=== PATIENT | female | born 1985 | race Caucasian/White ===

== ENCOUNTER 2017-02-12 14:37 | Emergency (ER) | payer BC ==
[2017-02-12 14:52] VITALS: BP 131/79
--- NOTE | 2017-02-12 16:07 | RAD ---
INDICATION: Pain and swelling. COMPARISON: None TECHNIQUE: Duplex interrogation of the Lowerextremity was performed. FINDINGS: Deep veins: The common femoral, great saphenous, profunda femoris, proximal, mid, and distal deep femoral, popliteal, posterior tibial, and peroneal veins are interrogated. There is a short segment of thrombosed popliteal vein. The remaining veins are patent. There is otherwise normal compressibility, augmentation, and phasic flow. Superficial veins: There are no findings of superficial thrombophlebitis. Popliteal fossa:There is no evidence of a popliteal cyst. Soft tissues:There are no soft tissue abnormalities. IMPRESSION: Deep venous thrombosis of the popliteal vein appear
[2017-02-12] MEDS ORDERED: Enoxaparin(*) 100 MG/ML SYR SUBCUT ONE (17:46)
--- NOTE | 2017-02-12 19:01 | ED ---
Alanna Esquivel Thomas, scribed for Ford Zelaya MD on 02/12/17 at 1524 . Lower Extremity - HPI Summary HPI Summary: The patient is a 31 y/o F with a Hx of DVT who presents to the ED with LLE pain that began two days ago. She is 9 weeks . She says that her LLE feels achy and cold. She rates the pain 8/10. She denies any appreciable swelling. She was at one point on a blood thinner. PMHx: DVT, pleural effusion. PSHx: ACL reconstruction. SHx: no smoking, no alcohol use. FHx: negative for DVT. - History of Current Complaint Chief Complaint: EDBleedingDisorder Stated Complaint: LEFT LEG POSSIBLE BLOOD CLOT Time Seen by Provider: 02/12/17 15:06 Hx Obtained From: Patient Onset/Duration: Days - onset of pain two days ago Severity Currently: Severe Pain Intensity: 8 Pain Scale Used: 0-10 Numeric Timing: Constant Location: Is Discrete @ - LLE Character Of Pain: Aching Associated Signs And Symptoms: Positive: Other - POS: feeling of coldnes to LLE. Negative: Swelling Aggravating Factor(s): Nothing Alleviating Factor(s): Nothing - Allergies/Home Medications Allergies/Adverse Reactions: Allergies Allergy/AdvReac Type Severity Reaction Status Date / Time Latex Allergy Hives Verified 02/12/17 14:48 PMH/Surg Hx/FS Hx/Imm Hx Previously Healthy: No Cardiovascular History: Reports: Hx Deep Vein Thrombosis Respiratory History: Reports: Hx Pleural Effusion - Surgical History Surgery Procedure, Year, and Place: ACL reconstruction Infectious Disease History: No Infectious Disease History: Denies: Traveled Outside the [place] in Last 30 Days - Family History Known Family History: Negative: Other - NEG: DVT - Social History Alcohol Use: None Hx Substance Use: No Substance Use Type: Reports: None Hx Tobacco Use: No Smoking Status (MU): Never Smoked Tobacco Review of Systems Negative: Fever Positive: Other - POS: LLE pain, feeling of achiness and colness to LLE; NEG: any swelling to LLE All Other Systems Reviewed And Are Negative: Yes Physical Exam Triage Information Reviewed: Yes Vital Signs On Initial Exam: Initial Vitals Temp Pulse Resp BP Pulse Ox 98.8 F 75 16 131/79 97 02/12/17 14:50 02/12/17 14:50 02/12/17 14:50 02/12/17 14:50 02/12/17 14:50 Vital Signs Reviewed: Yes Appearance: Positive: Well-Appearing, No Pain Distress Skin: Positive: Warm, Skin Color Reflects Adequate Perfusion, Dry Head/Face: Positive: Normal Head/Face Inspection Eyes: Positive: Normal ENT: Positive: Normal ENT inspection Neck: Positive: Supple Respiratory/Lung Sounds: Positive: Clear to Auscultation, Breath Sounds Present Cardiovascular: Positive: RRR Abdomen Description: Positive: Nontender, Soft Bowel Sounds: Positive: Present Musculoskeletal: Positive: Other - There is tenderness in the common foramen canal. On both extremities there are normal pulses and capillary refills. Neurological: Positive: Normal Psychiatric: Positive: Normal, Affect/Mood Appropriate Diagnostics - Vital Signs Vital Signs Temp Pulse Resp BP Pulse Ox 02/12/17 14:50 98.8 F 75 16 131/79 97 - Laboratory Lab Statement: Any lab studies that have been ordered have been reviewed, and results considered in the medical decision making process. - Additional Comments Diagnostic Additional Comments: Patient Name: ANGEL PATEL Medical Record#: [id number] Ordering Physician: Ford Zelaya MD Acct.#: [id number] : 1985 Age: 31 Sex: F Location: EMERGENCY DEPARTMENT Exam Date: 02/12/17 152 ADM Status: REG ER Order Information: VL LOWER EXT VEINS LEFT Accession Number: [id number] [facility] Interpreted by radiologist. IMPRESSION: Deep venous thrombosis of the popliteal vein appear. Lower Extremity Course/Dx - Course Course Of Treatment: Ms. Patel is 9 weeks and was found to have a small left popliteal DVT. She was started on lovenox and will F/U with Dr. Pacheco. - Diagnoses Provider Diagnoses: DVT (deep vein thrombosis) in - Physician Notifications Discussed Care Of Patient With: Noelle Bowman - 17:17, Julio Cesar Pacheco - 1729 Time Discussed With Above Provider: 17:17 Instructed by Provider To: Other - I discussed patient care with Dr. Bowman, OBGYN, at 17:17. I also consulted with Dr. Pacheco, Heme-Onc, at 17:23. Discharge - Discharge Plan Condition: Stable Disposition: HOME Prescriptions: Enoxaparin(*) [Lovenox(*)] 80 mg SUBCUT Q12HR #20 syringe Patient Education Materials: Deep Venous Thrombosis (ED) Referrals: Janneth Herrera MD [Medical Doctor] - 5 Days Additional Instructions: Follow up with Dr. Herrera within a week. Return to the emergency department for any new or worsening symptoms. The documentation as recorded by the Alanna haley Thomas accurately reflects the service I personally performed and the decisions made by me, Ford Zelaya MD.
== END 2017-02-12 18:33 | disposition home or self-care (01) ==
LOC: ED 14:37
DX: O22.31 Deep phlebothrombosis in pregnancy, first trimester (principal); I82.432 Acute embolism and thrombosis of left popliteal vein; Z3A.09 9 weeks gestation of pregnancy
CPT/HCPCS: 96372; 99282; J1650

== ENCOUNTER 2017-09-25 23:34 | Inpatient (IN) | payer BC ==
[2017-09-26] MEDS ORDERED: Ondansetron ODT TAB* 4 MG PO ONE (00:22)
[2017-09-26] MEDS: Ondansetron ODT TAB* 4 MG ONE ×2 (00:37→16:33)
[2017-09-26 05:54] LABS: ABS Basophils 0.1 10^3/ul (0-0.2); ABS Eosinophils 0 10^3/ul (0-0.6); ABS Lymphocytes 1.3 10^3/ul (1.0-4.8); ABS Monocytes 0.4 10^3/ul (0-0.8); ABS Nucleated RBC 0 10^3/ul; Eosinophil % 0 % (0-6); Hematocrit 41 % (35-47); Hemoglobin 14.3 g/dl (12.0-16.0); Lymphocyte % 7.7 % (25-47); Mean Corpuscular HGB Conc 35 g/dl (31-36); Mean Corpuscular Hemoglobin 32 pg (27-31); Mean Corpuscular Volume 92 fL (80-97); Mean Platelet Volume 7.9 um3 (7.4-10.4); Nucleated Red Blood Cells % 0; Platelet Count 221 10^3/ul (150-450); Red Blood Count 4.42 10^6/ul (4.0-5.4); Red Cell Distribution Width 14 % (10.5-15); White Blood Count 16.8 10^3/ul (3.5-10.8)
[2017-09-26 06:00] LABS: INR 0.86 (0.77-1.02)
--- NOTE | 2017-09-26 13:58 | HP ---
General Information - General Information Maternal Age: 31 Grav: 1 Para: 0 SAB: 0 IEA: 0 Estimated Due Date: 09/18/17 Determined By: LMP Gestational Age in Weeks and Days: 41 Weeks and 1 Days Maternal Blood Type and Rh: A Positive - Results this Serology/RPR Result: Non-Reactive Rubella Result: Immune HBsAg Result: Negative HIV Result: Negative GBS Culture Result: Negative Past Medical History Pertinent Past Medical History: See Records - DVT LEFT LEG 2009 AND 2016 ON LOVENOX THIS Pertinent Past Surgical History: See Records Past Surgical History Comment: 2012 ACL REPAIR 2016 Laparoscopy [place] teeht extraction Pertinent Family History: See Records - Antepartal Records Antepartal Records: Reviewed, Complicated by: - On anticoagulation for Hx DVT Review of Systems Constitutional: Comfortable CV Complaint: Yes Respiratory: Shortness of Breath: Yes Gastrointestinal: No Nausea/Vomiting, Normal Bowel Movement Genitourinary: Leaking Fluid, No Dysuria, No Bleeding Musculoskeletal: No Complaint Neurological: No Headache Movement: Normal Exam Allergies/Adverse Reactions: Allergies MS Latex [Latex] Allergy (Verified 09/26/17 00:54) Hives Temp 97.6 BP 130/80 RR 18 P 76 Pulse Ox 100% Lab Values - Entire Visit: Laboratory Tests 09/26/17 09/26/17 09/26/17 05:22 05:22 05:22 WBC 16.8 H RBC 4.42 Hgb 14.3 Hct 41 MCV 92 MCH 32 H MCHC 35 RDW 14 Plt Count 221 MPV 7.9 Neut % (Auto) 89.4 H Lymph % (Auto) 7.7 L [place] % (Auto) 2.5 Eos % (Auto) 0 Baso % (Auto) 0.4 Absolute Neuts (auto) 15.0 H Absolute Lymphs (auto) 1.3 Absolute Monos (auto) 0.4 Absolute Eos (auto) 0 Absolute Basos (auto) 0.1 Absolute Nucleated RBC 0 Nucleated RBC % 0 INR (Anticoag Therapy) 0.86 Blood Type A Positive Antibody Screen Negative - Measurements Height: 5 ft 7 in Weight: 201 lb Weight in lbs: 201 Body Mass Index (BMI): 31.4 Pre- Weight: 206 lb Weight Gained This : -5 lbs and 0 ozs - Exam Abdomen: No Upper Quadrant Pain Breast: Breast Exam Deferred CVA: No CVA Tenderness Extremities: No Edema Heart: Normal Rhythm/Heart Sounds HEENT: No Significant Findings Lungs: Clear Bilaterally Rectal: Rectal Exam Deferred Reflexes: DTR 2+ Thyroid: No Thyromegaly - Abdominal Exam Abdomen Exam: Non-Tender, Fundal Height Consistent with Dates - Ultrasound/Biophysical Profile Ultrasound Status: Not Done Targeted Exam Findings See L&D Outpatient Visit Provider Note for Findings: N/A Cervical Exam: 5cm Effacement: 80% Station: -1 Presenting Part: Vertex Membrane Status: SROM Amniotic Fluid Evaluation: Clear Bleeding/Discharge: None EFM Findings - External Monitor Findings Baseline Heart Rate: 130 External Monitor Findings: Accelerations Present Contractions: Irregular Contraction Frequency: q5min Assessment/Plan - Reason for Visit Reason for Visit: IUP at 41 weeks with SROM at 2100 09/25/17 with regular contractions and advanced cervical dilation. - Obstetrical Risk Factors Obstetrical Risk Factors: Post-Dates, Obesity Risk Factors Comment: BMI 32.2 Hx of DVT last heparin note on 09/25/17 noon. - Plan Plan: Observe Plan Comment: Monitor with expectation of - Date/Time of Admission Date of Admission: 09/26/17 Time of Admission: 10:30
[2017-09-26] MEDS ORDERED: Ondansetron ODT TAB* 4 MG ONE (16:31)
[2017-09-26] MEDS ORDERED: OBEPIDURAL* 250 ML EPIDURAL ONE (18:20)
[2017-09-26] MEDS ORDERED: fentaNYL* 50 MCG/ML 2 ML VIAL (100 MCG VIAL) ONE (18:20)
[2017-09-26] MEDS ORDERED: Famotidine TAB* 20 MG PO PRN (19:02)
[2017-09-26] MEDS ORDERED: Phenylephrine IV* 40 MCG/ML 10 ML SYRINGE IV PUSH PRN (19:02)
[2017-09-26] MEDS ORDERED: Sodium Citrate/Citric Acid* 15 ML UDC PO PRN (19:02)
[2017-09-26] MEDS ORDERED: EPHEDrine (Pressors)* 50 MG/ML VIAL IV PUSH PRN (19:02)
[2017-09-26] MEDS ORDERED: Oxytocin in LR* 20 UNITS/1,000 ML BAG IVPB SCH (20:00)
[2017-09-26] MEDS ORDERED: OBEPIDURAL* 250 ML EPIDURAL SCH (20:00)
[2017-09-27] MEDS ORDERED: Acetaminophen TAB* 325 MG PO PRN (01:34)
[2017-09-27] MEDS ORDERED: Glycerin ADULT SUPP PR PRN (01:34)
[2017-09-27] MEDS: Ibuprofen TAB* 600 MG PO PRN ×4 (03:37→21:34)
--- NOTE | 2017-09-27 04:56 | PTEDU ---
Patient Name: ANGEL MARCUS AMRITANGEL selected video: BBOB: Nurturing Your Gorgeous &Growing Baby by to view on 09/27/2017 at 4:55:54 [id number]
[2017-09-27] MEDS: Simethicone TAB* 80 MG TAB.CHEW PO SCH ×3 (08:30→17:30)
[2017-09-27] MEDS: Witch Hazel PAD* JAR TOPICAL PRN (09:42)
[2017-09-27] MEDS: Dibucaine 1% 28.35 GM TUBE PR PRN (09:42)
[2017-09-27] MEDS: Docusate CAP* 100 MG PO SCH ×4 (09:42→21:34)
[2017-09-27] MEDS: Enoxaparin(*) 40 MG/0.4 ML SYR SUBCUT SCH (09:44)
--- NOTE | 2017-09-27 11:51 | PTEDU ---
Patient Name: ANGEL MARCUS ANGEL MARCUS selected video: Never Ever Shake a Baby to view on 09/27/2017 at 11:50:[address] [id number]
[2017-09-28] MEDS: Ibuprofen TAB* 600 MG PO PRN ×3 (04:40→18:00)
[2017-09-28] MEDS: Simethicone TAB* 80 MG TAB.CHEW PO SCH (06:52)
[2017-09-28 07:04] LABS: ABS Basophils 0.1 10^3/ul (0-0.2); ABS Eosinophils 0.1 10^3/ul (0-0.6); ABS Lymphocytes 2.8 10^3/ul (1.0-4.8); ABS Monocytes 1.1 10^3/ul (0-0.8); ABS Neutrophils 10.1 10^3/ul (1.5-7.7); ABS Nucleated RBC 0 10^3/ul; Eosinophil % 0.5 % (0-6); Hematocrit 30 % (35-47); Hemoglobin 10.1 g/dl (12.0-16.0); Lymphocyte % 20.2 % (25-47); Mean Corpuscular HGB Conc 34 g/dl (31-36); Mean Corpuscular Hemoglobin 32 pg (27-31); Mean Corpuscular Volume 95 fL (80-97); Mean Platelet Volume 7.4 um3 (7.4-10.4); Nucleated Red Blood Cells % 0.1; Platelet Count 181 10^3/ul (150-450); Red Blood Count 3.12 10^6/ul (4.0-5.4); Red Cell Distribution Width 14 % (10.5-15); White Blood Count 14.1 10^3/ul (3.5-10.8)
[2017-09-28] MEDS ORDERED: Ferrous Gluconate TAB* 324 MG TAB PO SCH (09:00)
[2017-09-28] MEDS: Enoxaparin(*) 40 MG/0.4 ML SYR SUBCUT SCH (09:17)
[2017-09-28] MEDS: Docusate CAP* 100 MG PO SCH ×4 (09:17→19:44)
[2017-09-28] MEDS: Dibucaine 1% 28.35 GM TUBE PR PRN (19:44)
[2017-09-28] MEDS: Witch Hazel PAD* JAR TOPICAL PRN (19:44)
[2017-09-29] MEDS: Ibuprofen TAB* 600 MG PO PRN ×2 (02:16→08:15)
[2017-09-29 07:19] VITALS: BP 114/54
[2017-09-29] MEDS: Docusate CAP* 100 MG PO SCH (08:15)
[2017-09-29] MEDS: Enoxaparin(*) 40 MG/0.4 ML SYR SUBCUT SCH (08:16)
== END 2017-09-29 11:49 | disposition home or self-care (01) | DRG 560 ==
LOC: MCHOBOUT 23:34 → MCHOB 09-26 00:23
PROVIDERS: ADMIT Obstetrics & Gynecology; ATTEND Obstetrics & Gynecology
PROC: 4A1HX4Z Monitoring of Products of Conception, Cardiac Electrical Activity, External Approach (ICD-10-PCS; principal; 2017-09-28)
PROC: 0KQM0ZZ Repair Perineum Muscle, Open Approach (ICD-10-PCS; 2017-09-28)
PROC: 10E0XZZ Delivery of Products of Conception, External Approach (ICD-10-PCS; 2017-09-28)
PROC: 10907ZC Drainage of Amniotic Fluid, Therapeutic from Products of Conception, Via Natural or Artificial Opening (ICD-10-PCS; 2017-09-28)
DX: O48.0 Post-term pregnancy (principal); O66.0 Obstructed labor due to shoulder dystocia; O99.214 Obesity complicating childbirth; O77.0 Labor and delivery complicated by meconium in amniotic fluid; O70.1 Second degree perineal laceration during delivery; Z37.0 Single live birth; Z91.040 Latex allergy status; Z3A.41 41 weeks gestation of pregnancy; Z86.718 Personal history of other venous thrombosis and embolism; Z68.32 Body mass index [BMI] 32.0-32.9, adult
CPT/HCPCS: 36415; 82565; 84112; 84520; 85025; 85610; 86850; 86900; 86901; A9270-GY; J1650; J3010

== ENCOUNTER 2020-04-05 00:45 | Inpatient (IN) ==
[2020-04-05] MEDS ORDERED: Buffered Lidocaine 1% SYRIN 1 ml INTRADERM ONE (01:26)
[2020-04-05] MEDS ORDERED: Lactated Ringers 1000 ml BAG 1,000 ML IV ONE (01:26)
[2020-04-05] MEDS ORDERED: Lactated Ringers 1000 ml BAG 1,000 ML IV SCH ×2 (02:00→08:00)
[2020-04-05 02:15] LABS: ABS Basophils 0.1 10^3/ul (0-0.2); ABS Lymphocytes 1.9 10^3/ul (1.0-4.8); ABS Monocytes 1.1 10^3/ul (0-0.8); ABS Neutrophils 8.8 10^3/ul (1.5-7.7); Eosinophil % 0.3 %; Hematocrit 41 % (35-47); Hemoglobin 14.4 g/dL (12.0-16.0); Lymphocyte % 16.1 %; Mean Corpuscular HGB Conc 35 g/dL (31-36); Mean Corpuscular Hemoglobin 33 pg (27-31); Mean Corpuscular Volume 93 fL (80-97); Mean Platelet Volume 7.6 fL (7.4-10.4); Platelet Count 214 10^3/uL (150-450); Red Blood Count 4.43 10^6 /uL (3.70-4.87); Red Cell Distribution Width 14 % (10-15); White Blood Count 11.9 10^3/uL (3.5-10.8)
[2020-04-05] MEDS ORDERED: Sodium Phosphate ADULT ENEMA 133 ML BTL PR ONE (02:38)
[2020-04-05 02:40] LABS: Urine Benzodiazepine Screen None Detected (None Detect); Urine Cannabinoids Screen None Detected (None Detect); Urine Opiates Screen None Detected (None Detect)
[2020-04-05 03:12] LABS: Activated Partial Thrombo Time 22.7 seconds (26.0-38.0); Fibrinogen 426.5 mg/dL (110.8-404.3)
[2020-04-05 03:49] LABS: Platelet Count 214 10^3/ul (150-450); Schistocytes ABSENT
[2020-04-05] MEDS ORDERED: Oxytocin in LR 20 UNITS/1,000 ML BAG IVPB ONE (06:39)
[2020-04-05] MEDS ORDERED: Glycerin ADULT 2.4 gm SUPP PR PRN (07:42)
[2020-04-05] MEDS ORDERED: Witch Hazel PAD JAR TOPICAL PRN (07:42)
[2020-04-05] MEDS: Dibucaine 1% OINT 28.35 GM TUBE PR PRN (07:56)
[2020-04-05] MEDS ORDERED: Oxytocin in LR 20 UNITS/1,000 ML BAG IVPB SCH (08:00)
[2020-04-05] MEDS ORDERED: Ammonia Inhalant 1 EA AMP ONE (09:25)
[2020-04-05] MEDS ORDERED: Lidocaine 1% VIAL 10 MG/ML VIAL ONE (11:25)
[2020-04-05] MEDS ORDERED: Enoxaparin 40 MG/0.4 ML SYR SUBCUT SCH (18:00)
[2020-04-06] MEDS: Dibucaine 1% OINT 28.35 GM TUBE PR PRN (04:25)
[2020-04-06 07:58] VITALS: BP 103/60
[2020-04-06 08:19] LABS: ABS Basophils 0.1 10^3/ul (0-0.2); ABS Eosinophils 0.1 10^3/ul (0-0.6); ABS Lymphocytes 2.9 10^3/ul (1.0-4.8); ABS Monocytes 1.1 10^3/ul (0-0.8); ABS Neutrophils 10.7 10^3/ul (1.5-7.7); Eosinophil % 0.5 %; Hematocrit 38 % (35-47); Hemoglobin 13.1 g/dL (12.0-16.0); Lymphocyte % 19.7 %; Mean Corpuscular HGB Conc 34 g/dL (31-36); Mean Corpuscular Hemoglobin 32 pg (27-31); Mean Corpuscular Volume 95 fL (80-97); Mean Platelet Volume 7.6 fL (7.4-10.4); Platelet Count 208 10^3/uL (150-450); Red Blood Count 4.04 10^6 /uL (3.70-4.87); Red Cell Distribution Width 14 % (10-15); White Blood Count 14.8 10^3/uL (3.5-10.8)
== END 2020-04-06 11:48 | disposition home or self-care (01) | DRG 560 ==
LOC: MCHOBOUT 00:45 → MCHOB 01:29
PROVIDERS: ADMIT Obstetrics & Gynecology; ATTEND Obstetrics & Gynecology

== ENCOUNTER 2023-05-28 10:01 | Inpatient (IN) ==
[2023-05-28] MEDS ORDERED: Buffered Lidocaine 1% SYRIN 1 ml INTRADERM ONE (10:43)
[2023-05-28] MEDS ORDERED: Lactated Ringers 1000 ml BAG 1,000 ML IV ONE (10:43)
[2023-05-28] MEDS ORDERED: Lidocaine 1% VIAL 10 MG/ML 30 ML VIAL INJ PRN (10:43)
[2023-05-28] MEDS ORDERED: Promethazine INJ(RESTRICTED) 25 MG/ML 1 ml VIAL IV PRN (10:43)
[2023-05-28] MEDS ORDERED: Nalbuphine 10 MG/ML 1 ML VIAL IV PRN (10:43)
[2023-05-28] MEDS ORDERED: Lactated Ringers 1000 ml BAG 1,000 ML IV SCH ×2 (11:00→21:00)
[2023-05-28] MEDS ORDERED: Sodium Phosphate ADULT ENEMA 133 ML BTL PR ONE (11:06)
[2023-05-28 11:31] LABS: Urine Benzodiazepine Screen None Detected (None Detect); Urine Cannabinoids Screen None Detected (None Detect); Urine Opiates Screen None Detected (None Detect)
[2023-05-28] MEDS ORDERED: Ondansetron ODT 4 mg TAB 4 MG TAB SL PRN (16:58)
[2023-05-28] MEDS ORDERED: Oxytocin 10 UNITS/ML 1 ML VIAL IM ONE (20:03)
[2023-05-28] MEDS ORDERED: Glycerin ADULT 2.4 gm SUPP PR PRN (20:03)
[2023-05-28] MEDS: Dibucaine 1% OINT 28.35 GM TUBE PR PRN (22:26)
[2023-05-28] MEDS: Witch Hazel PAD JAR TOPICAL PRN (22:26)
[2023-05-29] MEDS: Enoxaparin 40 MG/0.4 ML SYR SUBCUT SCH (01:46)
[2023-05-29 08:43] LABS: Hematocrit 37.7 % (35-45); Hemoglobin 12.9 g/dL (11.5-14.3); Mean Corpuscular Hemoglobin 32.3 pg (27-33); Mean Corpuscular Hgb Conc 34.2 g/dL (31-36); Mean Corpuscular Volume 94.5 fL (80-97); Mean Platelet Volume 7.3 fL (7.5-11.2); Platelet Count 252 10^3/uL (150-450); Red Blood Count 3.99 10^6/uL (3.63-4.92); Red Cell Distribution Width 13.4 % (12-17); White Blood Count 17.3 10^3/uL (3.8-11.8)
[2023-05-29 09:28] LABS: ABS Monocytes 1.6 10^3/uL (0.0-0.9); ABS Neutrophils 13.7 10^3/uL (1.5-7.6); Eosinophil % 0.1 %; Lymphocyte % 11.6 %
[2023-05-29] MEDS: Dibucaine 1% OINT 28.35 GM TUBE PR PRN (19:46)
[2023-05-29] MEDS: Witch Hazel PAD JAR TOPICAL PRN (19:47)
[2023-05-29 22:55] VITALS: BP 138/70
[2023-05-30] MEDS: Enoxaparin 40 MG/0.4 ML SYR SUBCUT SCH (01:12)
== END 2023-05-30 02:20 | disposition home or self-care (01) | DRG 806 ==
LOC: MCHOBOUT 10:01 → MCHOB 10:42
PROVIDERS: ADMIT Obstetrics & Gynecology; ATTEND Obstetrics & Gynecology